=== PATIENT | male | born 1975 | race Caucasian/White ===

== ENCOUNTER 2019-03-03 17:14 | Emergency (ER) | payer BC ==
[2019-03-03 18:03] VITALS: BP 141/89
--- NOTE | 2019-03-03 18:27 | UC ---
Lower Extremity/Ankle HPI - HPI Summary HPI Summary: patient has right lower leg swelling and calf pain, no trauma, n-m-c intact--- left leg wnl - History of Current Complaint Chief Complaint: UCLowerExtremity Stated Complaint: RIGHT SWOLLEN ANKLE Time Seen by Provider: 03/03/19 18:13 Hx Obtained From: Patient Onset/Duration: Sudden Onset, Lasting Days - 2, Still Present Pain Intensity: 4 Pain Scale Used: 0-10 Numeric Aggravating Factor(s): Standing, Ambulation Alleviating Factor(s): Nothing Able to Bear Weight: Yes - Allergies/Home Medications Allergies/Adverse Reactions: Allergies Allergy/AdvReac Type Severity Reaction Status Date / Time aspirin Allergy Hives Verified 03/03/19 18:05 Penicillins Allergy Hives Verified 03/03/19 18:05 Home Medications: Home Medications Methimazole TAB* [Tapazole TAB*] 1 tab PO DAILY 03/03/19 [History Confirmed ] PMH/Surg Hx/FS Hx/Imm Hx Previously Healthy: No Endocrine History: Hyperthyroidism - Surgical History Surgical History: None - Family History Known Family History: Positive: None - Social History Occupation: Employed Full-time Lives: With Family Alcohol Use: Occasionally Substance Use Type: None Smoking Status (MU): Never Smoked Tobacco Review of Systems All Other Systems Reviewed And Are Negative: Yes Constitutional: Positive: Negative Skin: Positive: Negative Eyes: Positive: Negative ENT: Positive: Negative Respiratory: Positive: Negative Cardiovascular: Positive: Negative Gastrointestinal: Positive: Negative Genitourinary: Positive: Negative Motor: Positive: Negative Neurovascular: Positive: Negative Musculoskeletal: Positive: Edema - right lower leg, Myalgia - right calf Neurological: Positive: Negative Psychological: Positive: Negative Is Patient Immunocompromised?: No Physical Exam Triage Information Reviewed: Yes Appearance: Well-Appearing, No Pain Distress, Well-Nourished Vital Signs: Initial Vital Signs Temp 97.5 F 03/03/19 17:56 Pulse 77 03/03/19 17:56 Resp 16 03/03/19 17:56 BP 141/89 03/03/19 17:56 Pulse Ox 98 03/03/19 17:56 Vital Signs Reviewed: Yes Eye Exam: Normal Eyes: Positive: Conjunctiva Clear ENT Exam: Normal ENT: Positive: Normal ENT inspection, Hearing grossly normal. Negative: Trismus , Muffled voice, Hoarse voice Dental Exam: Normal Neck exam: Normal Neck: Positive: Supple, Nontender, No Lymphadenopathy Respiratory Exam: Normal Respiratory: Positive: Chest non-tender, Normal breath sounds, No respiratory distress, No accessory muscle use Cardiovascular Exam: Normal Cardiovascular: Positive: RRR, Pulses Normal, Brisk Capillary Refill Musculoskeletal Exam: Other Musculoskeletal: Positive: Strength Intact, ROM Intact, Edema @ - right lower leg Neurological Exam: Normal Neurological: Positive: Alert, Muscle Tone Normal Psychological Exam: Normal Skin Exam: Normal Lower Extremity Course/Dx - Course Course Of Treatment: patient refused to go to hospital for us of rle--patient given d/c instructions and signed out AMA---patient is encouraged to follow up and seek advanced imaging----he usderstanding the potentional out come could be pulmonary emboli and - Differential Dx/Diagnosis Provider Diagnosis: Pain and swelling of right lower extremity Discharge ED - Sign-Out/Discharge Documenting (check all that apply): Patient Departure All imaging exams completed and their final reports reviewed: No Studies - Discharge Plan Condition: Fair Disposition: AGAINST MEDICAL ADVICE Patient Education Materials: Deep Vein Thrombosis (ED), Leg Edema (ED) Referrals: Crispin Crawford MD [Primary Care Provider] - - Billing Disposition and Condition Condition: FAIR Disposition: Against Medical Advice - Attestation Statements Provider Attestation: Per institutional requirements, I have reviewed the chart, however, I was not consulted specifically or made aware of this patient by the midlevel provider. I did not personally evaluate, interact with , or disposition this patient.
== END 2019-03-03 18:50 | disposition left against medical advice (07) ==
LOC: UCCORT 17:14
DX: M79.661 Pain in right lower leg (principal); M79.89 Other specified soft tissue disorders; Z53.21 Procedure and treatment not carried out due to patient leaving prior to being seen by health care provider; Z88.0 Allergy status to penicillin; E05.90 Thyrotoxicosis, unspecified without thyrotoxic crisis or storm; Z88.6 Allergy status to analgesic agent
CPT/HCPCS: 99202; G0463